=== PATIENT | female | born 1975 | race African-American/Black ===

== ENCOUNTER 2020-07-02 18:49 | Emergency (ER) | payer MEDICAID ==
[~2020-07-02] VITALS: Ht 172.7 cm; Wt 108.9 kg
[2020-07-02 19:41] LABS: BASOPHILS % (AUTO) 0.8 % (0.0-2.0); EOSINOPHILS % (AUTO) 4.1 % (0.0-3.0); HEMATOCRIT 36.2 % (37.0-47.0); HEMOGLOBIN 11.9 G/DL (12.0-16.0); LYMPHOCYTES % (AUTO) 27.4 % (20.0-45.0); MEAN CORPUSCULAR VOLUME 87 FL (80-99); MONOCYTES % (AUTO) 7.2 % (1.0-10.0); NEUTROPHILS % (AUTO) 60.5 % (45.0-75.0); PLATELET COUNT 430 K/UL (150-450); RED BLOOD COUNT 4.16 M/UL (4.20-5.40); RED CELL DISTRIBUTION WIDTH 14.2 % (11.6-14.8); WHITE BLOOD COUNT 8.9 K/UL (4.8-10.8)
[2020-07-02 19:46] LABS: BILIRUBIN, URINE NEGATIVE (NEGATIVE); GLUCOSE, URINE (UA) NEGATIVE (NEGATIVE); KETONES,URINE 3+ (NEGATIVE); LEUKOCYTE ESTERASE ,URINE 2+ (NEGATIVE); NITRITE,URINE POSITIVE (NEGATIVE); PH,URINE 5 (4.5-8.0); PROTEIN,URINE 3+ (NEGATIVE); UROBILINOGEN,URINE 1 MG/DL (0.0-1.0)
[2020-07-02 19:51] LABS: ANION GAP 10 mmol/L (5-15); BLOOD UREA NITROGEN 6 mg/dL (7-18); CALCIUM 9.2 MG/DL (8.5-10.1); CARBON DIOXIDE 27 MMOL/L (21-32); CHLORIDE 103 MMOL/L (98-107); CREATININE 1.2 MG/DL (0.55-1.30); POTASSIUM 2.8 MMOL/L (3.5-5.1); SODIUM 140 MMOL/L (136-145)
[2020-07-02 19:52] LABS: APPEARANCE,URINE CLOUDY; COLOR,URINE RED
[2020-07-02 19:55] LABS: ALANINE AMINOTRANSFERASE 28 U/L (12-78); ALBUMIN 3.7 G/DL (3.4-5.0); ALBUMIN/GLOBULIN RATIO 0.8 (1.0-2.7); ALKALINE PHOSPHATASE 61 U/L (46-116); ASPARTATE AMINO TRANSFERASE 17 U/L (15-37); BILIRUBIN,TOTAL 0.2 MG/DL (0.2-1.0)
--- NOTE | 2020-07-02 20:19 | Diagnostic Imaging Report ---
EXAM: US Pelvis Transabdominal and Transvaginal, Complete and US Duplex Arterial/Venous of the Pelvis, Complete CLINICAL HISTORY: PAIN TECHNIQUE: Real-time complete transabdominal and transvaginal pelvic ultrasound with image documentation. Transvaginal imaging was used for better evaluation of the endometrium and adnexa. Real-time duplex ultrasound scan of the arterial and venous flow of the pelvis with color Doppler flow and spectral waveform analysis. COMPARISON: No relevant prior studies available. FINDINGS: Uterus/cervix: Incidentally noted nabothian cysts, benign findings. Uterus 10 x 4 x 5.9 x 5 cm Endometrium 0.6 cm No myometrial mass. Right ovary: Ovaries not visualized. Left ovary: See above. Free fluid: No free fluid. Bladder: Unremarkable as visualized. Wall is normal thickness for degree of distention. Other findings: No beta hCG available at the time of dictation. IMPRESSION: 1. No beta hCG available at the time of dictation. 2. If this patient is , this could represent normal early , early failure, or ectopic . 3. If this patient is not , this represents a normal uterine appearance. 3. Ovaries not visualized. 4. Otherwise unremarkable study.
[2020-07-02] MEDS ORDERED: POTASSIUM CHLO20 ME1 ORAL (20:41)
[2020-07-02 20:56] VITALS: BP 130/86
--- NOTE | 2020-07-02 21:23 | Emergency Room Report ---
History of Present Illness General Chief Complaint: Complications Source: Patient Present Illness HPI Patient is a 44-year-old female who presents for increased vaginal bleeding. Patient had been approximately 8 weeks. She is G9, with prior twin pregnancies. Patient reports having increased cramping and bleeding which had somewhat improved over the past 1 day. She denies any fever. Denies any focal pain to her abdomen currently. Denies feeling dizzy or lightheaded. Allergies: Coded Allergies: No Known Allergies (Unverified , 07/02/20) COVID-19 Screening Contact w/high risk pt: No Experienced COVID-19 symptoms?: No COVID-19 Testing performed RECEIVING SUPERVISOR: No Patient History Past Medical History: see triage record Now: Yes - 8 weeks : 9 Para: 8 Reviewed Nursing Documentation: PMH: Agreed; PSxH: Agreed Nursing Documentation-PMH Past Medical History: No History, Except For Hx Cardiac Problems: No - hypothyroidism Review of Systems All Other Systems: negative except mentioned in HPI Physical Exam Vital Signs Date Time Temp Pulse Resp B/P (MAP) Pulse Ox O2 Delivery O2 Flow Rate FiO2 07/02/20 19:04 98.6 87 19 127/88 (101) 99 Room Air Sp02 EP Interpretation: reviewed, normal General Appearance: normal inspection, well appearing, no apparent distress, alert, GCS 15, non-toxic Head: atraumatic ENT: normal ENT inspection, hearing grossly normal, normal voice Neck: normal inspection, full range of motion, supple, no bony tend Respiratory: normal inspection, lungs clear, normal breath sounds, no respiratory distress, no retraction, no wheezing Cardiovascular #1: regular rate, rhythm, no edema Gastrointestinal: normal inspection, normal bowel sounds, non tender, soft, no guarding, no hernia Genitourinary: no CVA tenderness Musculoskeletal: normal inspection, back normal, normal range of motion Neurologic: alert, motor strength/tone normal, aviation support equipment repairer III-XII nml as tested, oriented x3, responsive, speech normal, normal inspection Psychiatric: normal inspection, judgement/insight normal, mood/affect normal Skin: no rash Medical Decision Making Diagnostic Impression: Primary Impression: Complication of ER Course Patient presented for vaginal bleeding. Differential diagnosis include was not limited to ectopic , completed miscarriage, threatened among others. Because of complexity of patient's case laboratory tests and imaging studies were ordered. Pelvic ultrasound showed no evidence of intrauterine . Patient did not have any evidence of free fluid. She did not have any abdominal tenderness. Quantitative beta-hCG was approximately 560 which is lower than the patient's expected number given the advanced age of . Patient was advised to have repeat quantitative beta-hCG to evaluate for her possible completed miscarriage versus ectopic. She states she has an appointment tomorrow with her STRIP CUTTER. She was advised to return if she began having localized pain persistent dizziness or other concerns. No evidence of rupture at this time. Patient was advised to return if worse. This medical record is generated with [email or web address] human resources records clerk software. There may be some human resources records clerk discrepancies related to use of this software Labs Test 07/02/20 19:15 White Blood Count 8.9 K/UL (4.8-10.8) Red Blood Count 4.16 M/UL (4.20-5.40) Hemoglobin 11.9 G/DL (12.0-16.0) Hematocrit 36.2 % (37.0-47.0) Mean Corpuscular Volume 87 FL (80-99) Mean Corpuscular Hemoglobin 28.5 PG (27.0-31.0) Mean Corpuscular Hemoglobin Concent 32.8 G/DL (32.0-36.0) Red Cell Distribution Width 14.2 % (11.6-14.8) Platelet Count 430 K/UL (150-450) Mean Platelet Volume 6.8 FL (6.5-10.1) Neutrophils (%) (Auto) 60.5 % (45.0-75.0) Lymphocytes (%) (Auto) 27.4 % (20.0-45.0) Monocytes (%) (Auto) 7.2 % (1.0-10.0) Eosinophils (%) (Auto) 4.1 % (0.0-3.0) Basophils (%) (Auto) 0.8 % (0.0-2.0) Prothrombin Time 11.0 SEC (9.30-11.50) Prothromb Time International Ratio 1.0 (0.9-1.1) Activated Partial Thromboplast Time 25 SEC (23-33) Urine Color Red Urine Appearance Cloudy Urine pH 5 (4.5-8.0) Urine Specific [place] 1.020 (1.005-1.035) Urine Protein 3+ (NEGATIVE) Urine Glucose (UA) Negative (NEGATIVE) Urine Ketones 3+ (NEGATIVE) Urine Blood 5+ (NEGATIVE) Urine Nitrite Positive (NEGATIVE) Urine Bilirubin Negative (NEGATIVE) Urine Urobilinogen 1 MG/DL (0.0-1.0) Urine Leukocyte Esterase 2+ (NEGATIVE) Urine RBC Tntc /HPF (0 - 2) Urine WBC 5-10 /HPF (0 - 2) Urine Squamous Epithelial Cells Few /LPF (NONE/OCC) Urine Bacteria Many /HPF (NONE) Sodium Level 140 MMOL/L (136-145) Potassium Level 2.8 MMOL/L (3.5-5.1) Chloride Level 103 MMOL/L (98-107) Carbon Dioxide Level 27 MMOL/L (21-32) Anion Gap 10 mmol/L (5-15) Blood Urea Nitrogen 6 mg/dL (7-18) Creatinine 1.2 MG/DL (0.55-1.30) Estimat Glomerular Filtration Rate 49.0 mL/min (>60) Glucose Level 121 MG/DL (74-106) Calcium Level 9.2 MG/DL (8.5-10.1) Total Bilirubin 0.2 MG/DL (0.2-1.0) Aspartate Amino Transf (AST/SGOT) 17 U/L (15-37) Alanine Aminotransferase (ALT/SGPT) 28 U/L (12-78) Alkaline Phosphatase 61 U/L (46-116) Total Protein 8.3 G/DL (6.4-8.2) Albumin 3.7 G/DL (3.4-5.0) Globulin 4.6 g/dL Albumin/Globulin Ratio 0.8 (1.0-2.7) Lipase 140 U/L (73-393) Human Chorionic Gonadotropin, Quant 559 mIU/mL (1-6) Last Vital Signs Date Time Temp Pulse Resp B/P (MAP) Pulse Ox O2 Delivery O2 Flow Rate FiO2 07/02/20 20:56 98.6 19 130/86 99 Room Air 07/02/20 19:04 87 Status: improved Disposition: HOME, SELF-CARE Condition: Stable Scripts Potassium Chloride* (K-DUR*) 20 Meq Tab.er.prt 40 MEQ ORAL DAILY, #7 TAB 0 Refills Prov: Sancho Chung MD 07/02/20 Patient Instructions: Ectopic Additional Instructions: Follow up with your doctor for repeat hcg test. No intrauterine seen. This may be miscarriage. Follow up with jockey room custodian for recheck in 2 days for repeat Quant B hcg. Sancho Chung MD Jul 02, 2020 21:23
== END 2020-07-02 20:57 | disposition home or self-care (01) ==
LOC: EMR 19:25
DX: O20.9 Hemorrhage in early pregnancy, unspecified (principal); Z3A.08 8 weeks gestation of pregnancy; E03.9 Hypothyroidism, unspecified
CPT/HCPCS: 36415; 76801; 76817; 80053; 81003; 83690; 84702; 85025; 85610; 85730; 86850; 86900; 86901; 87086; Z7502; 99284

== ENCOUNTER 2020-12-16 22:00 | Emergency (ER) | payer MEDICAID ==
[~2020-12-16] VITALS: Ht 170.2 cm; Wt 90.7 kg
[~2020-12-16 22:00] MED LIST: POTASSIUM CHLO20 ME1 ORAL
[2020-12-16 22:05] VITALS: BP 124/89
--- NOTE | 2020-12-16 22:39 | Emergency Room Report ---
History of Present Illness General Chief Complaint: Complications Source: Patient, Medical Record Present Illness HPI This is a 45-year-old female who is 10, para 8, A1 who presents with chief complaint of spotting in . Onset for last 2 days. No pain. No fever chills but no nausea no vomiting. Nothing made it better. Nothing made it worse. Denies any other complaint. Her last ended in a miscarriage. Patient is B+ blood type Allergies: Coded Allergies: No Known Allergies (Unverified , 07/02/20) COVID-19 Screening Contact w/high risk pt: No Experienced COVID-19 symptoms?: No COVID-19 Testing performed ENVIRONMENTAL PROJECTS ADVISOR: No Patient History Past Medical History: see triage record, old chart reviewed Past Surgical History: , other Pertinent Family History: none Social History: Denies: smoking Now: Yes : 9 Para: 8 Immunizations: other Reviewed Nursing Documentation: PMH: Agreed; PSxH: Agreed Nursing Documentation-PMH Hx Cardiac Problems: No - hypothyroidism Review of Systems Eye: Denies: eye pain, blurred vision ENT: Denies: ear pain, nose congestion, throat swelling Respiratory: Denies: cough, shortness of breath Cardiovascular: Denies: chest pain, palpitations Gastrointestinal: Denies: abdominal pain, diarrhea, nausea, vomiting Genitourinary: Reports: vag bleed/dc Musculoskeletal: Denies: back pain, joint pain Skin: Denies: rash Neurological: Denies: headache, numbness Endocrine: Denies: increased thirst, increased urine Hematologic/Lymphatic: Denies: easy bruising All Other Systems: negative except mentioned in HPI Physical Exam Vital Signs Date Time Temp Pulse Resp B/P (MAP) Pulse Ox O2 Delivery O2 Flow Rate FiO2 12/16/20 22:05 99.1 82 20 124/89 (101) 98 Room Air Vitals normal Sp02 EP Interpretation: reviewed, normal General Appearance: well appearing, no apparent distress, alert Head: normocephalic, atraumatic Eyes: bilateral eye PERRL, bilateral eye EOMI ENT: hearing grossly normal, normal pharynx Neck: full range of motion, supple, no meningismus Respiratory: chest non-tender, lungs clear, normal breath sounds Cardiovascular #1: regular rate, rhythm, no murmur Gastrointestinal: normal bowel sounds, non tender, no mass, no organomegaly, no bruit, non-distended Musculoskeletal: back normal, normal range of motion, gait/station normal Psychiatric: mood/affect normal Medical Decision Making Diagnostic Impression: Primary Impression: Threatened in first trimester Additional Impression: UTI (urinary tract infection) ER Course Patient presents with spotting in early . Ultrasound showed early IUP without obvious heartbeat. She may have a mild urinary tract infection. Will discharge home. Her blood type is B+ in June. No evidence of ectopic. CT/MRI/US Diagnostic Results CT/MRI/US Diagnostic Results : Imaging Test Ordered: Ultrasound Impression Read by radiologist. Early IUP approximately 6 weeks. Last Vital Signs Date Time Temp Pulse Resp B/P (MAP) Pulse Ox O2 Delivery O2 Flow Rate FiO2 12/16/20 22:05 99.1 82 20 124/89 (101) 98 Room Air Status: improved Disposition: HOME, SELF-CARE Condition: Stable Scripts Nitrofurantoin Monohyd/M-Cryst (Nitrofurantoin [place]-Mcr 100 mg) 100 Mg Capsule 100 MG ORAL Q12H, #14 CAP Prov: Migue Motley MD 12/16/20 Additional Instructions: Follow-up with your PORCELAIN BUILDUP ASSISTANT in a week for recheck on your level. Return if symptoms worsen. Migue Motley MD Dec 16, 2020 22:39
[2020-12-16 22:50] LABS: APPEARANCE,URINE CLEAR; BILIRUBIN, URINE NEGATIVE (NEGATIVE); COLOR,URINE YELLOW; GLUCOSE, URINE (UA) NEGATIVE (NEGATIVE); KETONES,URINE 1+ (NEGATIVE); LEUKOCYTE ESTERASE ,URINE 2+ (NEGATIVE); NITRITE,URINE NEGATIVE (NEGATIVE); PH,URINE 6 (4.5-8.0); PROTEIN,URINE 1+ (NEGATIVE); UROBILINOGEN,URINE NORMAL MG/DL (0.0-1.0)
--- NOTE | 2020-12-16 22:50 | NUR ---
ED Nurse Note: Pt came to the ED from home. Pt is A/O x4 and ambulatory. Pt states that she is on her 8th and is 8 weeks and spotting started 2 days ago. Pt states she has no vaginal pain at this time. No SOB or acute distress noted.
--- NOTE | 2020-12-16 23:43 | Diagnostic Imaging Report ---
EXAM: US First Trimester , Transabdominal and Transvaginal CLINICAL HISTORY: PAIN TECHNIQUE: Real-time transabdominal and transvaginal obstetrical ultrasound of the maternal pelvis and a first trimester with image documentation. Transvaginal imaging was used for better evaluation of the fetus and adnexa. COMPARISON: No relevant prior studies available. FINDINGS: Gestation: Suspected tiny gestational sac within the endometrium. No pole or yolk sac likely secondary to the gestation. Placenta/amniotic fluid: Cannot be adequately evaluated due to the early gestational age. Uterus/cervix: Nabothian cysts within the cervix. No myometrial mass. Ovaries: Right ovary is unremarkable. Left ovary was not visualized secondary to bowel gas. Free fluid: No free fluid. IMPRESSION: Suspected tiny gestational sac within the endometrium. No pole or yolk sac likely secondary to the gestation. Correlate with beta hCG and short interval follow-up if indicated.
[2020-12-16] MEDS ORDERED: MACROBID100 MG ORAL (23:46)
--- NOTE | 2020-12-16 23:49 | NUR ---
ER DISCHARGE NOTE: Patient is cleared to be discharged per ERMD, pt is aox4, on room air, with stable vital signs. pt was given dc and prescription instructions, pt was able to verbalize understanding, pt id band removed without complications. pt is able to ambulate with steady gait. pt took all belongings.
[2020-12-17] MEDS ORDERED: PRENATAL + DHA1 EAC1 PO (17:49)
[2020-12-17] MEDS ORDERED: TYLENOL EXTRA500 MG ORAL (17:49)
== END 2020-12-16 23:30 | disposition home or self-care (01) ==
LOC: EMR 23:04
DX: O20.0 Threatened abortion (principal); O23.41 Unspecified infection of urinary tract in pregnancy, first trimester; Z3A.00 Weeks of gestation of pregnancy not specified
CPT/HCPCS: 36415; 76801; 76817; 81003; 84702; Z7502; 99284

== ENCOUNTER 2020-12-17 16:47 | Emergency (ER) | payer MEDICAID ==
[~2020-12-17] VITALS: Ht 175.3 cm; Wt 108.9 kg
[~2020-12-17 16:47] MED LIST changes: +MACROBID100 MG ORAL
--- NOTE | 2020-12-17 17:47 | Emergency Room Report ---
History of Present Illness General Chief Complaint: Female Urogenital Problems Source: Patient Present Illness HPI 45 YO female presents to the ED c/o continued 10/10 lower abdominal cramping since yesterday. Pt. reports she was here in the ED early this morning and was discharged but did not receive any rx or info for pain control at home. She is currently approximately 6weeks IUP according to US performed here this am. Pt is , A1. She reports she also was dx with UTI. She states she just went home to rest and did not fill her rx for abx yet. Patient is also reporting that she does not currently have any vitamins. Patient states that she is seen at the [facility] which has women's health services available to her. Patient reports she has not made a follow-up appointment there yet. Patient denies nausea, vomiting, fevers or chills. She denies any increase in amount of vaginal bleeding from earlier evaluation this morning. Patient reports she continues to notice some blood when using the bathroom. She denies dizziness, syncope, chest pain or palpitations. She denies taking blood thinning medications. She reports history of hypothyroidism. No other aggravating or relieving factors. She reports she is blood type B+. Allergies: Coded Allergies: No Known Allergies (Unverified , 07/02/20) COVID-19 Screening Contact w/high risk pt: No Experienced COVID-19 symptoms?: No COVID-19 Testing performed GRASS FARMER: No Patient History Past Medical History: see triage record Past Surgical History: none Pertinent Family History: none Now: Yes : 9 Para: 8 Reviewed Nursing Documentation: PMH: Agreed; PSxH: Agreed Nursing Documentation-PMH Past Medical History: No History, Except For Hx Cardiac Problems: No - hypothyroidism Review of Systems All Other Systems: negative except mentioned in HPI Physical Exam Vital Signs Date Time Temp Pulse Resp B/P (MAP) Pulse Ox O2 Delivery O2 Flow Rate FiO2 12/17/20 17:01 98.8 92 18 112/75 (87) 95 Room Air Sp02 EP Interpretation: reviewed, normal General Appearance: no apparent distress, alert, GCS 15, non-toxic Head: normocephalic, atraumatic Eyes: bilateral eye normal inspection, bilateral eye PERRL ENT: hearing grossly normal, normal voice Neck: full range of motion Respiratory: lungs clear, normal breath sounds, speaking full sentences Cardiovascular #1: regular rate, rhythm Gastrointestinal: normal bowel sounds, non tender, soft, non-distended, no guarding Rectal: deferred Genitourinary: normal inspection, no CVA tenderness Musculoskeletal: normal range of motion, gait/station normal, non-tender Neurologic: alert, motor strength/tone normal, oriented x3, sensory intact, responsive, speech normal Psychiatric: judgement/insight normal Skin: normal color Medical Decision Making PA Attestation Dr. Palacio Is my supervising Physician whom patient management has been discussed with. Diagnostic Impression: Primary Impression: Threatened in first trimester Additional Impression: UTI (urinary tract infection) Qualified Codes: N30.01 - Acute cystitis with hematuria ER Course 45 YO female presents to the ED c/o continued 1010 lower abdominal cramping since yesterday. Pt. reports she was here in the ED early this morning and was discharged but did not receive any rx or info for pain control at home. She is currently approximately 6weeks IUP according to US performed here this am. Pt is , A1. She reports she also was dx with UTI. She states she just went home to rest and did not fill her rx for abx yet. Patient is also reporting that she does not currently have any vitamins. Patient states that she is seen at the [facility] which has women's health services available to her. Patient reports she has not made a follow-up appointment there yet. Patient denies nausea, vomiting, fevers or chills. She denies any increase in amount of vaginal bleeding from earlier evaluation this morning. Patient reports she continues to notice some blood when using the bathroom. She denies dizziness, syncope, chest pain or palpitations. She denies taking blood thinning medications. She reports history of hypothyroidism. No other aggravating or relieving factors. She reports she is blood type B+. Ddx considered but are not limited to: Fibroid, ectopic , Fibroid, Spontaneous ,placenta previa, placenta abruptio Vital signs: are WNL, pt. is afebrile H&PE are most consistent with: spotting during early , threatened miscarriage with UTI. Patient is nontoxic in appearance and in no acute distress. No suspicion of acute abdomen on exam. No evidence to suggest acute hemorrhage or significant anemia at this time. I reviewed all laboratory and imaging results from patient's previous ED visit this morning. No evidence to suggest an acute emergency requiring immediate emergent interventions at this time. ORDERS: None required at this time reviewed laboratory results from earlier this morning when patient first presented here to the ED. Type and Rh screen is not necessary at this time as patient reports she is blood type B+. ED INTERVENTIONS: -Tylenol Patient education that Tylenol is the recommended pain medication of choice during . Reiterated the importance of filling her prescriptions and taking her antibiotic regimen and close outpatient GUN STOCKER follow-up. I discussed with this patient that threatened miscarriage is of suspicion and until repeat laboratory and imaging is performed in a few days will not be able to confirm until then. Pt. given strict ED return precautions for worsening bleeding, pain control not controlled with rx's, fevers, dizziness, or any other worsening or new symptoms that develops and she has concern for. DISCHARGE: At this time pt. is stable for d/c to home. Will provide printed patient care instructions, and any necessary prescriptions. Care plan and follow up instructions have been discussed with the patient prior to discharge. Last Vital Signs Date Time Temp Pulse Resp B/P (MAP) Pulse Ox O2 Delivery O2 Flow Rate FiO2 12/17/20 17:01 98.8 92 18 112/75 (87) 95 Room Air Status: improved Disposition: HOME, SELF-CARE Condition: Stable Scripts Acetaminophen* (TYLENOL EXTRA STRENGTH*) 500 Mg Tablet 500 MG ORAL Q6H, #30 TAB 0 Refills Prov: Gem Sunshine 12/17/20 Vit #91/Fe Fum/Fa/Dha ( + DHA COMBO PACK) 1 Each Combo..pkg 1 EACH PO DAILY, #1 PACK 2 Refills Prov: Gem Sunshine 12/17/20 Referrals: [facility] [place] Patient Instructions: and Urinary Tract Infection, Threatened Miscarriage, [id number] Additional Instructions: Take medications as directed. Follow up with a OBGYN within 3 days, even if your symptoms have resolved. Return sooner to ED if new symptoms occur, or current symptoms become worse. - Please note that this Emergency Department Report was dictated using [employer] Platform[employer] and couch maker technology software, occasionally this can lead to erroneous entry secondary to interpretation by the dictation equipment. Gem Sunshine Dec 17, 2020 17:47
[2020-12-17] MEDS ORDERED: TYLENOL EXTRA500 MG ORAL (17:49)
[2020-12-17] MEDS ORDERED: PRENATAL + DHA1 EAC1 PO (17:49)
[2020-12-17 18:05] VITALS: BP 135/78
== END 2020-12-17 18:08 | disposition home or self-care (01) ==
LOC: EMR 17:53
DX: O20.0 Threatened abortion (principal); O23.11 Infections of bladder in pregnancy, first trimester; Z3A.01 Less than 8 weeks gestation of pregnancy; E03.9 Hypothyroidism, unspecified
CPT/HCPCS: 99282